=== PATIENT | male | born 1985 | race Caucasian/White ===

== ENCOUNTER 2021-02-26 11:15 | Emergency (ER) | payer OTHER ==
[~2021-02-26] VITALS: Ht 172.7 cm; Wt 81.8 kg
[2021-02-26 11:37] VITALS: BP 133/82; PULSE 94
[2021-02-26] MEDS ORDERED: PEN-VEE K500 MG PO (12:27)
== END 2021-02-26 12:32 | disposition home or self-care (01) ==
LOC: COL.ER 11:15
DX: K08.89 Other specified disorders of teeth and supporting structures (principal); F17.200 Nicotine dependence, unspecified, uncomplicated